=== PATIENT | female | born 1945 | race Two or more races ===

== ENCOUNTER 2023-11-28 18:04 | Inpatient (IN) | payer OTHER ==
[2023-11-28] MEDS ORDERED: DEXTROSE 50%-WATER 25 GM/50 ML DISP.SYRIN ONE (19:30)
[2023-11-28] MEDS: DEXTROSE 50%-WATER - 25 GM/50 ML VIAL IVPUSH ONE ×2 (19:32)
[2023-11-28 21:42] LABS: HEMATOCRIT 37.1 % (32.4-45.2); MCH 29.2 pg (25.7-33.7); MCHC 32.3 g/dl (32.0-36.0); MEAN CELL VOLUME 90.3 fl (80-96); RBC 4.11 M/mm3 (3.60-5.2); WHITE BLOOD COUNT 8.4 K/mm3 (4.0-10.0)
[2023-11-28 22:06] LABS: POTASSIUM 4.1 mmol/L (3.5-5.1)
[2023-11-28 22:08] LABS: CALCIUM 8.5 mg/dL (8.5-10.1)
[2023-11-28 22:09] LABS: ALBUMIN 2.1 g/dl (3.4-5.0); BLOOD UREA NITROGEN 58.6 mg/dL (7-18)
[2023-11-28 22:12] LABS: CREATININE 3.3 mg/dL (0.55-1.3)
[2023-11-28 22:13] LABS: BILIRUBIN,TOTAL 0.4 mg/dL (0.2-1); MEAN PLT VOLUME 10.8 fl (7.5-11.1); PLATELET COUNT 136 10^3/uL (134-434); TOT PROT 8.5 g/dl (6.4-8.2)
[2023-11-28 22:19] LABS: ANISOCYTOSIS 2+; MACROCYTOSIS 2+; OVALOCYTE 1+
[2023-11-29] MEDS ORDERED: DOCUSATE SODIUM 100 MG CAPSULE (FP) PO PRN (00:03)
[2023-11-29] MEDS ORDERED: CEFTRIAXONE 1 GM/50 ML BAG ONE (00:23)
[2023-11-29 00:27] LABS: VENOUS BASE EXCESS -5.9 mmol/L (-2-2); VENOUS O2 SATURATION 80.4 % (70-80); VENOUS PCO2 26.7 mmHg (38-52); VENOUS PH 7.423 (7.310-7.410)
[2023-11-29] MEDS: SODIUM CHLORIDE 0.9% 500 ML INFUS.BAG IV ONE (00:32)
[2023-11-29] MEDS: CEFTRIAXONE 1,000 MG in DEXTROSE 5%-WATER - 50 ML IVPB ONE (00:32)
[2023-11-29 00:58] LABS: EPI CELLS >36 /uL (0-25.1); HYALINE CASTS 2 /uL (0-3.1); URINE APPEARANCE CLOUDY; URINE BACTERIA >9,000 /uL (0-1359); URINE BILIRUBIN NEGATIVE (NEGATIVE); URINE COLOR YELLOW; URINE GLUCOSE (UA) TRACE (NEGATIVE); URINE KETONE TRACE (NEGATIVE); URINE LEUK ESTERASE NEGATIVE (NEGATIVE); URINE NITRITE NEGATIVE (NEGATIVE); URINE PROTEIN 1+ (NEGATIVE); URINE RBC 18 /uL (0-23.9); URINE WBC 55 /uL (0-25.8)
[2023-11-29 01:10] LABS: POTASSIUM 3.9 mmol/L (3.5-5.1)
[2023-11-29 01:11] LABS: CALCIUM 8.5 mg/dL (8.5-10.1)
[2023-11-29] MEDS ORDERED: AZITHROMYCIN IVPB 500 MG/250 ML BAG IVPB ONE (01:11)
[2023-11-29 01:12] LABS: BLOOD UREA NITROGEN 59.4 mg/dL (7-18)
[2023-11-29 01:15] LABS: CREATININE 3.1 mg/dL (0.55-1.3)
[2023-11-29] MEDS: AZITHROMYCIN IVPB 500 MG in DEXTROSE 5%-WATER - 250 ML IVPB ONE (01:19)
[2023-11-29 01:30] LABS: LACTIC ACID 2.7 mmol/L (0.4-2.0)
[2023-11-29 02:06] LABS: INR 1.33 (0.83-1.09); PROTHROMBIN TIME (PATIENT) 15.2 SEC (9.7-13.0)
[2023-11-29 02:09] LABS: ACTIVATED PTT 27.7 SECONDS (25.2-36.5)
[2023-11-29] MEDS: METOPROLOL TARTRATE 5 MG/5 ML VIAL IVPUSH ONE (04:08)
[2023-11-29] MEDS: SODIUM CHLORIDE 1,000 ML IV SCH (04:12)
[2023-11-29] MEDS: ACETAMINOPHEN 1000 MG/100 ML BAG IVPB ONE ×2 (04:25→20:31)
[2023-11-29 08:24] LABS: HEMATOCRIT 31.7 % (32.4-45.2); HEMOGLOBIN 10.6 GM/dL (10.7-15.3); MCH 29.2 pg (25.7-33.7); MCHC 33.5 g/dl (32.0-36.0); MEAN CELL VOLUME 87.2 fl (80-96); PLATELET COUNT 122 10^3/uL (134-434); RBC 3.64 M/mm3 (3.60-5.2); RDW 16.1 % (11.6-15.6); WHITE BLOOD COUNT 5.9 K/mm3 (4.0-10.0)
[2023-11-29 08:40] LABS: POTASSIUM 3.6 mmol/L (3.5-5.1)
[2023-11-29 08:41] LABS: BLOOD UREA NITROGEN 54.3 mg/dL (7-18); CALCIUM 7.9 mg/dL (8.5-10.1)
[2023-11-29 08:42] LABS: MAGNESIUM 1.2 mg/dL (1.8-2.4)
[2023-11-29 08:45] LABS: CREATININE 2.6 mg/dL (0.55-1.3); PHOSPHOROUS 3.9 mg/dL (2.5-4.9)
[2023-11-29 09:53] LABS: ANISOCYTOSIS 0; HELMET CELLS 0; HOWELL-JOLLY BODIES 0; MACROCYTOSIS 0; OVALOCYTE 0; ROULEAU 0; SICKELED CELLS 0; TARGET CELLS 0; TEAR DROP CELLS 0; TOXIC GRANULATION 0
[2023-11-29] MEDS ORDERED: AZITHROMYCIN IVPB 500 MG in DEXTROSE 5%-WATER - 250 ML IVPB SCH (10:00)
[2023-11-29 10:15] LABS: N-TERMINAL BNP 2367.3 pg/ml (5-450)
[2023-11-29] MEDS: CEFTRIAXONE 1 GM in DEXTROSE 5%-WATER - 50 ML IVPB SCH (10:35)
[2023-11-29] MEDS: METOPROLOL TARTRATE 50 MG TABLET (FP) PO SCH (10:35)
[2023-11-29] MEDS: AZITHROMYCIN IVPB 500 MG/250 ML BAG IVPB SCH (12:52)
[2023-11-29] MEDS: MAGNESIUM SULF 50% (8.12 MEQ/2 ML-1 GM VIAL) IVPB ONE (16:54)
[2023-11-29] MEDS: SODIUM CHLORIDE 0.45% 1,000 ML IV SCH (17:07)
[2023-11-29] MEDS: POTASSIUM CHLORIDE ORAL LIQUID 20 MEQ/15 ML PO ONE (17:23)
[2023-11-29 20:24] LABS: ALLENS TEST POSITIVE; ARTERIAL BLD GAS O2 SATURATION 93.3 % (95-98); ARTERIAL BLOOD GAS BASE EXCESS -3.9 mmol/L (-2-2); ARTERIAL BLOOD GAS PO2 61.5 mmHg (80-100); ARTERIAL BLOOD GAS pH 7.462 (7.350-7.450)
[2023-11-29] MEDS: HALOPERIDOL LACTATE 5 MG/ML IM ONE (21:24)
[2023-11-29] MEDS: MELATONIN 5 MG TABLETS PO PRN (23:36)
[2023-11-30] MEDS: HALOPERIDOL LACTATE 5 MG/ML IM ONE (00:55)
[2023-11-30 08:31] LABS: CHLORIDE 110 mmol/L (98-107); POTASSIUM 5.4 mmol/L (3.5-5.1); SODIUM 136 mmol/L (136-145)
[2023-11-30 08:34] LABS: CALCIUM 8.7 mg/dL (8.5-10.1)
[2023-11-30 08:35] LABS: ALBUMIN 1.9 g/dl (3.4-5.0); ANION GAP 8 mmol/L (4-13); BLOOD UREA NITROGEN 59.1 mg/dL (7-18); CO2 18 mmol/L (21-32); GLUCOSE,RANDOM 186 mg/dL (74-106); MAGNESIUM 2.1 mg/dL (1.8-2.4)
[2023-11-30 08:38] LABS: CREATININE 2.5 mg/dL (0.55-1.3); SGOT/AST 62 U/L (15-37); SGPT/ALT 43 U/L (13-61)
[2023-11-30 08:40] LABS: ALK PHOS 114 U/L (45-117); BILIRUBIN,TOTAL 0.6 mg/dL (0.2-1); TOT PROT 8.2 g/dl (6.4-8.2)
[2023-11-30] MEDS ORDERED: AZITHROMYCIN IVPB 500 MG/250 ML BAG IVPB SCH (12:00)
[2023-11-30] MEDS: METOPROLOL TARTRATE 5 MG/5 ML VIAL IVPUSH ONE (20:27)
[2023-11-30] MEDS: ACETAMINOPHEN 1000 MG/100 ML BAG IVPB ONE (21:41)
[2023-12-01 08:12] LABS: BASO % 0.3 % (0-2.0); EOS % 0.7 % (0-4.5); HEMATOCRIT 30.6 % (32.4-45.2); HEMOGLOBIN 10.4 GM/dL (10.7-15.3); LYMPH % 6.9 % (8-40); MCH 29.7 pg (25.7-33.7); MEAN CELL VOLUME 87.3 fl (80-96); MEAN PLT VOLUME 11.8 fl (7.5-11.1); MONO % 2.9 % (3.8-10.2); NEUT % 89.2 % (42.8-82.8); PLATELET COUNT 153 10^3/uL (134-434); RBC 3.51 M/mm3 (3.60-5.2); RDW 16.5 % (11.6-15.6); WHITE BLOOD COUNT 10.6 K/mm3 (4.0-10.0)
[2023-12-01 08:33] LABS: POTASSIUM 4.3 mmol/L (3.5-5.1)
[2023-12-01 08:37] LABS: ALBUMIN 1.7 g/dl (3.4-5.0); BLOOD UREA NITROGEN 73.2 mg/dL (7-18); CALCIUM 8.5 mg/dL (8.5-10.1)
[2023-12-01 08:42] LABS: BILIRUBIN,TOTAL 0.4 mg/dL (0.2-1); TOT PROT 7.3 g/dl (6.4-8.2)
[2023-12-01] MEDS: LEVALBUTEROL HCL 0.63 MG/3 ML VIAL.NEB. IH ONE (20:39)
[2023-12-02 08:18] LABS: BASO % 0.3 % (0-2.0); EOS % 1.3 % (0-4.5); HEMATOCRIT 29.9 % (32.4-45.2); LYMPH % 6.2 % (8-40); MCH 28.9 pg (25.7-33.7); MCHC 33.4 g/dl (32.0-36.0); MEAN CELL VOLUME 86.7 fl (80-96); MEAN PLT VOLUME 11.6 fl (7.5-11.1); MONO % 3.1 % (3.8-10.2); NEUT % 89.1 % (42.8-82.8); PLATELET COUNT 187 10^3/uL (134-434); RBC 3.45 M/mm3 (3.60-5.2); RDW 16.1 % (11.6-15.6); WHITE BLOOD COUNT 11.5 K/mm3 (4.0-10.0)
[2023-12-02 08:33] LABS: POTASSIUM 4.5 mmol/L (3.5-5.1)
[2023-12-02 08:35] LABS: CALCIUM 8.3 mg/dL (8.5-10.1)
[2023-12-02 08:36] LABS: ALBUMIN 1.5 g/dl (3.4-5.0); BLOOD UREA NITROGEN 74.8 mg/dL (7-18)
[2023-12-02 08:40] LABS: CREATININE 2.4 mg/dL (0.55-1.3)
[2023-12-02 08:42] LABS: BILIRUBIN,TOTAL 0.3 mg/dL (0.2-1)
[2023-12-02] MEDS: SODIUM CHLORIDE 0.45% 1,000 ML IV SCH (13:23)
[2023-12-03 07:47] LABS: CALCIUM 8.3 mg/dL (8.5-10.1)
[2023-12-03 07:48] LABS: BLOOD UREA NITROGEN 62.3 mg/dL (7-18)
[2023-12-03 07:49] LABS: ALBUMIN 1.5 g/dl (3.4-5.0)
[2023-12-03 07:51] LABS: CREATININE 1.9 mg/dL (0.55-1.3)
[2023-12-03 07:53] LABS: BILIRUBIN,TOTAL 0.7 mg/dL (0.2-1)
[2023-12-03 08:08] LABS: BASO % 0.2 % (0-2.0); EOS % 1.4 % (0-4.5); HEMATOCRIT 30.3 % (32.4-45.2); HEMOGLOBIN 10.2 GM/dL (10.7-15.3); LYMPH % 5.8 % (8-40); MCHC 33.6 g/dl (32.0-36.0); MEAN CELL VOLUME 86.2 fl (80-96); MEAN PLT VOLUME 11.5 fl (7.5-11.1); NEUT % 87.6 % (42.8-82.8); PLATELET COUNT 231 10^3/uL (134-434); RBC 3.51 M/mm3 (3.60-5.2); RDW 15.8 % (11.6-15.6); WHITE BLOOD COUNT 11.1 K/mm3 (4.0-10.0)
[2023-12-04] MEDS: methylPREDNISolone NA SUCC 40 MG/1 ML VIAL IVPUSH SCH (12:21)
[2023-12-05] MEDS ORDERED: MELATONIN 5 MG TABLETS PO PRN (05:38)
[2023-12-05 08:36] LABS: BASO % 0.1 % (0-2.0); HEMATOCRIT 30.8 % (32.4-45.2); HEMOGLOBIN 10.4 GM/dL (10.7-15.3); LYMPH % 8.7 % (8-40); MCH 28.9 pg (25.7-33.7); MCHC 33.8 g/dl (32.0-36.0); MEAN CELL VOLUME 85.7 fl (80-96); MEAN PLT VOLUME 10.4 fl (7.5-11.1); MONO % 4.5 % (3.8-10.2); NEUT % 86.7 % (42.8-82.8); PLATELET COUNT 347 10^3/uL (134-434); RDW 16.1 % (11.6-15.6); WHITE BLOOD COUNT 11.6 K/mm3 (4.0-10.0)
[2023-12-05 08:51] LABS: ALBUMIN 1.6 g/dl (3.4-5.0); CALCIUM 8.9 mg/dL (8.5-10.1); POTASSIUM 4.3 mmol/L (3.5-5.1)
[2023-12-05 08:53] LABS: BLOOD UREA NITROGEN 58.6 mg/dL (7-18)
[2023-12-05 08:55] LABS: CREATININE 1.8 mg/dL (0.55-1.3)
[2023-12-05 08:56] LABS: BILIRUBIN,TOTAL 0.5 mg/dL (0.2-1); TOT PROT 7.7 g/dl (6.4-8.2)
[2023-12-05] MEDS: DOCUSATE SODIUM 100 MG CAPSULE (FP) PO PRN (09:15)
[2023-12-05] MEDS: METOPROLOL TARTRATE 50 MG TABLET (FP) PO SCH (09:15)
[2023-12-05 14:39] VITALS: BMI 28.1
[2023-12-06] MEDS: INSULIN (NOVOLOG) ASPART 100 UNITS/ML 10ML VIAL SQ ONE (18:32)
[2023-12-06] MEDS: INSULIN REGULAR HUMAN 100 UNITS/ML *VIAL SQ ONE (18:37)
[2023-12-06] MEDS: INSULIN ASPART SLIDING SCALE (NOVOLOG) 1 VIAL SQ SCH (21:38)
[2023-12-07] MEDS: predniSONE 20 MG TABLET (UD) PO SCH (09:31)
[2023-12-07 10:18] LABS: BASO % 0.2 % (0-2.0); EOS % 0.4 % (0-4.5); HEMATOCRIT 34.6 % (32.4-45.2); HEMOGLOBIN 11.8 GM/dL (10.7-15.3); LYMPH % 17.4 % (8-40); MCH 29.5 pg (25.7-33.7); MCHC 34.1 g/dl (32.0-36.0); MEAN CELL VOLUME 86.6 fl (80-96); PLATELET COUNT 370 10^3/uL (134-434); RBC 3.99 M/mm3 (3.60-5.2); RDW 16.4 % (11.6-15.6); WHITE BLOOD COUNT 8.5 K/mm3 (4.0-10.0)
[2023-12-07 10:41] LABS: POTASSIUM 4.6 mmol/L (3.5-5.1)
[2023-12-07 10:43] LABS: ALBUMIN 1.8 g/dl (3.4-5.0); CALCIUM 8.6 mg/dL (8.5-10.1)
[2023-12-07 10:44] LABS: BLOOD UREA NITROGEN 58.3 mg/dL (7-18)
[2023-12-07 10:46] LABS: CREATININE 1.7 mg/dL (0.55-1.3)
[2023-12-07 10:48] LABS: BILIRUBIN,TOTAL 0.5 mg/dL (0.2-1); TOT PROT 7.9 g/dl (6.4-8.2)
[2023-12-08 04:33] VITALS: RESP 18
[2023-12-08 14:44] VITALS: BP 109/70; PULSE 81; TEMP 97.3
== END 2023-12-08 20:28 | DRG 193 ==
LOC: JER 18:04 → UNDOADMIN 23:37 → JERBED 23:37 → J4W 11-29 06:33 → J6S 12-05 00:06
PROVIDERS: ADMIT Internal Medicine; ATTEND Family Medicine
DX: J13 Pneumonia due to Streptococcus pneumoniae (principal); G93.41 Metabolic encephalopathy; N13.6 Pyonephrosis; N17.9 Acute kidney failure, unspecified; N18.9 Chronic kidney disease, unspecified; E11.9 Type 2 diabetes mellitus without complications; D64.9 Anemia, unspecified; E78.5 Hyperlipidemia, unspecified; F17.210 Nicotine dependence, cigarettes, uncomplicated
CPT/HCPCS: 0241U-QW; 36415; 36600; 70450-TC; 71045-TC-FY; 71250-TC; 74176-TC; 76775-TC; 80048; 80053; 81003; 82550; 82553; 82728; 82803; 82962; 83540; 83550; 83605; 83735; 83880; 84100; 84484; 85025; 85610; 85730; 86850; 86900; 86901; 87040; 87086; 87186; 87899; 93306-TC; 97116-GP; 97162-GP; 99285-25; J0131

== ENCOUNTER 2024-10-23 10:37 | Inpatient (IN) | payer OTHER ==
[2024-10-23] MEDS: LACTATED RINGERS SOLUTION 1000 ML INFUS.BAG IV ONE ×2 (12:34→19:30)
[2024-10-23 12:39] LABS: VENOUS O2 SATURATION 81.8 % (70-80); VENOUS PCO2 41.2 mmHg (38-52); VENOUS PH 7.337 (7.310-7.410)
[2024-10-23 12:42] LABS: BASOPHILS # 0.02 x10^3/uL (0.01-0.08)
[2024-10-23 12:47] LABS: ABSOLUTE IMMATURE GRANULOCYTES 0.02 x10^3/uL (0.0-0.031); EOSINOPHIL % 0.4 % (0.7-5.8); EOSINOPHILS # 0.03 x10^3/uL (0.04-0.36); HEMATOCRIT 39.1 % (34.1-44.9); HEMOGLOBIN 12.6 g/dL (11.2-15.7); MCHC 32.2 g/dl (32.2-35.5); MEAN CELL VOLUME 83.7 fl (79.4-94.8); MONOCYTE # 0.33 x10^3/uL (0.24-0.86); MONOCYTE % 4.9 % (4.7-12.5); PLATELET COUNT 113 x10^3/uL (182-369); RDW 16.5 % (12.5-17.0)
[2024-10-23 12:48] LABS: PH,URINE 5.5 (5.0-8.0); URINE APPEARANCE CLOUDY; URINE BILIRUBIN NEGATIVE (NEGATIVE); URINE COLOR YELLOW; URINE GLUCOSE (UA) 3+ (NEGATIVE); URINE KETONE NEGATIVE (NEGATIVE); URINE LEUK ESTERASE 1+ (NEGATIVE); URINE NITRITE POSITIVE (NEGATIVE); URINE PROTEIN TRACE (NEGATIVE); URINE UROBILINOGEN 0.2 mg/dL (0.2-1.0)
[2024-10-23 12:52] LABS: EPI CELLS 27.5 /uL (0-25.1); HYALINE CASTS 0.87 /uL (0-3.1); URINE RBC 34.1 /uL (0-23.9); URINE WBC 597.9 /uL (0-25.8)
[2024-10-23 12:53] LABS: URINE BACTERIA 19002.2 /uL (0-1359)
[2024-10-23 13:04] LABS: CHLORIDE 99 mmol/L (98-107); POTASSIUM 4.6 mmol/L (3.5-5.1); SODIUM 128 mmol/L (136-145)
[2024-10-23] MEDS ORDERED: CEFTRIAXONE 1 G/50 ML PREMIX 50 ML IVPB ONE (13:05)
[2024-10-23 13:07] LABS: ALBUMIN 2.8 g/dl (3.4-5.0); ANION GAP 10 mmol/L (4-13); BLOOD UREA NITROGEN 38.7 mg/dL (7-18); CO2 19 mmol/L (21-32)
[2024-10-23] MEDS ORDERED: cefTRIAXone SODIUM 1 GM VIAL ONE (13:07)
[2024-10-23 13:08] LABS: MAGNESIUM 1.6 mg/dL (1.8-2.4)
[2024-10-23 13:09] LABS: SGOT/AST 29 U/L (15-37); SGPT/ALT 16 U/L (13-61)
[2024-10-23 13:10] LABS: CREATININE 3.3 mg/dL (0.55-1.3)
[2024-10-23 13:12] LABS: ALK PHOS 67 U/L (45-117); BILIRUBIN,TOTAL 0.4 mg/dL (0.2-1); GLUCOSE,RANDOM 459 mg/dL (74-106); TOT PROT 10.7 g/dl (6.4-8.2)
[2024-10-23] MEDS ORDERED: MELATONIN 5 MG TABLETS PO PRN (14:14)
[2024-10-23] MEDS ORDERED: DOCUSATE SODIUM 100 MG CAPSULE (FP) PO PRN (14:14)
[2024-10-23] MEDS: INSULIN (NOVOLOG) ASPART 100 UNITS/ML 10ML VIAL SQ SCH (17:47)
[2024-10-23 18:05] VITALS: BMI 28.2
[2024-10-23] MEDS: SODIUM CHLORIDE 1,000 ML IV SCH (20:30)
[2024-10-23] MEDS: INSULIN GLARGINE (LANTUS) 100 UNITS/ML UNITS SQ SCH (21:55)
[2024-10-23] MEDS: HEPARIN NA (PORCINE) 5,000 UNITS/ML 1ML VIAL SQ SCH (21:57)
[2024-10-23] MEDS: METOPROLOL TARTRATE 50 MG TABLET (FP) PO SCH (21:57)
[2024-10-24 09:09] LABS: BASOPHILS # 0.01 x10^3/uL (0.01-0.08); EOSINOPHILS # 0.07 x10^3/uL (0.04-0.36); HEMOGLOBIN 12.5 g/dL (11.2-15.7)
[2024-10-24 09:11] LABS: ABSOLUTE IMMATURE GRANULOCYTES 0.02 x10^3/uL (0.0-0.031); EOSINOPHIL % 1.6 % (0.7-5.8); HEMATOCRIT 38.7 % (34.1-44.9); MCHC 32.3 g/dl (32.2-35.5); MEAN CELL VOLUME 83.9 fl (79.4-94.8); MONOCYTE # 0.22 x10^3/uL (0.24-0.86); PLATELET COUNT 98 x10^3/uL (182-369); RDW 16.5 % (12.5-17.0)
[2024-10-24 09:29] LABS: POTASSIUM 3.7 mmol/L (3.5-5.1)
[2024-10-24 09:30] LABS: CALCIUM 8.7 mg/dL (8.5-10.1)
[2024-10-24 09:32] LABS: ALBUMIN 2.6 g/dl (3.4-5.0); BLOOD UREA NITROGEN 30.5 mg/dL (7-18)
[2024-10-24 09:35] LABS: BILIRUBIN,TOTAL 0.3 mg/dL (0.2-1); CREATININE 2.3 mg/dL (0.55-1.3); PHOSPHOROUS 3.8 mg/dL (2.5-4.9); TOT PROT 9.7 g/dl (6.4-8.2)
[2024-10-24] MEDS: CEFTRIAXONE 1 G/50 ML PREMIX 50 ML IVPB SCH (09:47)
[2024-10-24] MEDS: INSULIN GLARGINE (LANTUS) 100 UNITS/ML UNITS SQ SCH (09:48)
[2024-10-25] MEDS: INSULIN GLARGINE (LANTUS) 100 UNITS/ML UNITS SQ SCH (07:34)
[2024-10-25 08:58] LABS: ABSOLUTE IMMATURE GRANULOCYTES 0.02 x10^3/uL (0.0-0.031); BASOPHILS # 0.01 x10^3/uL (0.01-0.08)
[2024-10-25 09:01] LABS: EOSINOPHIL % 2.5 % (0.7-5.8); EOSINOPHILS # 0.12 x10^3/uL (0.04-0.36); HEMATOCRIT 36.5 % (34.1-44.9); HEMOGLOBIN 11.9 g/dL (11.2-15.7); MCHC 32.6 g/dl (32.2-35.5); MEAN CELL VOLUME 84.5 fl (79.4-94.8); MONOCYTE # 0.27 x10^3/uL (0.24-0.86); MONOCYTE % 5.6 % (4.7-12.5); PLATELET COUNT 98 x10^3/uL (182-369); RDW 16.6 % (12.5-17.0)
[2024-10-25 09:20] LABS: POTASSIUM 3.9 mmol/L (3.5-5.1)
[2024-10-25 09:23] LABS: ALBUMIN 2.3 g/dl (3.4-5.0); BLOOD UREA NITROGEN 21.6 mg/dL (7-18); CALCIUM 8.8 mg/dL (8.5-10.1)
[2024-10-25 09:28] LABS: BILIRUBIN,TOTAL 0.4 mg/dL (0.2-1); TOT PROT 8.7 g/dl (6.4-8.2)
[2024-10-25] MEDS ORDERED: INSULIN ASPART SLIDING SCALE (NOVOLOG) 1 VIAL SQ ONE (12:03)
[2024-10-25 20:02] VITALS: RESP 18
[2024-10-26] MEDS: CEFTRIAXONE 1 GM in DEXTROSE 5%-WATER - 50 ML IVPB SCH (09:36)
[2024-10-26 11:43] VITALS: BP 132/63; PULSE 71; TEMP 98.1
== END 2024-10-26 12:32 | disposition home or self-care (01) | DRG 638 ==
LOC: JER 10:37 → JERBED 14:15 → OBSVTOIN 14:17 → J7W 17:27
PROVIDERS: ADMIT Family Medicine; ATTEND Family Medicine
DX: E11.65 Type 2 diabetes mellitus with hyperglycemia (principal); N13.30 Unspecified hydronephrosis; N17.9 Acute kidney failure, unspecified; N39.0 Urinary tract infection, site not specified; I10 Essential (primary) hypertension; E78.5 Hyperlipidemia, unspecified; D69.6 Thrombocytopenia, unspecified; E11.40 Type 2 diabetes mellitus with diabetic neuropathy, unspecified
CPT/HCPCS: 0241U-QW; 36415; 71045-TC-FY; 76775-TC; 80053; 81003; 82010; 82803; 82962; 83036; 83735; 84100; 84443; 85025; 87086; 93005; 93010; 99285-25; G0378

== ENCOUNTER 2025-01-16 11:13 | Emergency (ER) | payer OTHER ==
[2025-01-16 11:21] VITALS: RESP 18; TEMP 98.5; BMI 28.3
[2025-01-16 14:01] LABS: ABSOLUTE IMMATURE GRANULOCYTES 0.07 x10^3/uL (0.0-0.031); BASOPHILS # 0.02 x10^3/uL (0.01-0.08); EOSINOPHIL % 0.2 % (0.7-5.8); EOSINOPHILS # 0.01 x10^3/uL (0.04-0.36); IMMATURE PLATELET FRACTION # 4.40 x10^3/uL; MCHC 31.7 g/dl (32.2-35.5); MEAN CELL VOLUME 89.9 fl (79.4-94.8); MONOCYTE # 0.23 x10^3/uL (0.24-0.86); MONOCYTE % 4.5 % (4.7-12.5); RDW 20.6 % (12.5-17.0)
[2025-01-16 14:14] LABS: GLUCOSE,RANDOM 147.0 mg/dL (74-106); TOT PROT 12.4 g/dl (6.4-8.2)
[2025-01-16 14:15] LABS: CO2 19.0 mmol/L (21-32)
[2025-01-16 14:17] LABS: ALK PHOS 35.0 U/L (40-150)
[2025-01-16 14:19] LABS: SGOT/AST 31.0 U/L (5-34); SGPT/ALT 19.0 U/L (0-55)
[2025-01-16 14:20] LABS: CREATININE 2.89 mg/dL (0.55-1.3)
[2025-01-16 15:36] VITALS: BP 142/58; PULSE 116
[2025-01-16] MEDS: SODIUM CHLORIDE 1,000 ML IV STA (15:49)
[2025-01-16] MEDS ORDERED: MAGNESIUM SULF 50% (8.12 MEQ/2 ML-1 GM VIAL) ONE (16:15)
[2025-01-16] MEDS: MAGNESIUM SULF 50% (8.12 MEQ/2 ML-1 GM VIAL) IVPB ONE (16:24)
[2025-01-16 18:03] LABS: HCV DIAGNOSTIC IN-HOUSE W/RFLX NON-REACTIVE (NONREACTIVE)
[2025-01-16 18:30] LABS: HIV INTERPRETATION NEGATIVE (NEGATIVE)
== END 2025-01-16 17:41 | disposition home or self-care (01) ==
LOC: JER 11:13
PROC: 3E033GC Introduction of Other Therapeutic Substance into Peripheral Vein, Percutaneous Approach (ICD-10-PCS; principal; 2025-01-16)
PROC: 3E0337Z Introduction of Electrolytic and Water Balance Substance into Peripheral Vein, Percutaneous Approach (ICD-10-PCS; 2025-01-16)
DX: R22.0 Localized swelling, mass and lump, head (principal)
CPT/HCPCS: 36415; 70486-TC; 70490-TC; 80053; 83735; 85025; 86803; 87389; 93005; 93010; 99285-25

== ENCOUNTER 2025-03-17 10:49 | Inpatient (IN) | payer OTHER ==
[2025-03-17 11:49] LABS: MCHC 30.3 g/dl (32.2-35.5); MEAN CELL VOLUME 95.9 fl (79.4-94.8); RDW 21.9 % (12.5-17.0)
[2025-03-17] MEDS: LACTATED RINGERS SOLUTION 1000 ML INFUS.BAG IV ONE (11:51)
[2025-03-17 12:20] LABS: GLUCOSE,RANDOM 91 mg/dL (74-106)
[2025-03-17 12:21] LABS: CO2 17 mmol/L (21-32); TOT PROT 17.2 g/dl (6.4-8.2)
[2025-03-17 12:23] LABS: ALK PHOS 37 U/L (40-150)
[2025-03-17 12:26] LABS: CREATININE 3.84 mg/dL (0.55-1.3); SGOT/AST 178 U/L (5-34); SGPT/ALT 19 U/L (0-55)
[2025-03-17 13:29] LABS: GLUCOSE,RANDOM 56.0 mg/dL (74-106); TOT PROT 11.7 g/dl (6.4-8.2)
[2025-03-17 13:30] LABS: CO2 17.0 mmol/L (21-32)
[2025-03-17 13:31] LABS: ALK PHOS 35.0 U/L (40-150)
[2025-03-17 13:34] LABS: EPI CELLS 34 /uL (0-25.1); HYALINE CASTS 2 /uL (0-3.1); URINE APPEARANCE CLOUDY; URINE BACTERIA 764 /uL (0-1359); URINE BILIRUBIN NEGATIVE (NEGATIVE); URINE COLOR YELLOW; URINE GLUCOSE (UA) 1+ (NEGATIVE); URINE KETONE NEGATIVE (NEGATIVE); URINE LEUK ESTERASE NEGATIVE (NEGATIVE); URINE NITRITE NEGATIVE (NEGATIVE); URINE PROTEIN 1+ (NEGATIVE); URINE RBC 9 /uL (0-23.9); URINE UROBILINOGEN 0.2 mg/dL (0.2-1.0); URINE WBC 16 /uL (0-25.8)
[2025-03-17 13:34] LABS: CREATININE 3.8 mg/dL (0.55-1.3); SGOT/AST 22.0 U/L (5-34); SGPT/ALT 6.0 U/L (0-55)
[2025-03-17 13:36] LABS: LACTIC ACID 3.4 mmol/L (0.4-2.0)
[2025-03-17] MEDS: SODIUM CHLORIDE 0.9% 500 ML INFUS.BAG IV ONE (13:38)
[2025-03-17 13:50] LABS: YEAST NONE SEEN (NEGATIVE)
[2025-03-17] MEDS ORDERED: CEFTRIAXONE 1 GM/50 ML BAG ONE (14:06)
[2025-03-17] MEDS ORDERED: ACETAMINOPHEN 325 MG TABLET (FP) PO PRN (16:13)
[2025-03-17] MEDS: SODIUM CHLORIDE 1,000 ML IV SCH (16:50)
[2025-03-17] MEDS: HEPARIN NA (PORCINE) 5,000 UNITS/ML 1ML VIAL SQ SCH (21:22)
[2025-03-17] MEDS: MELATONIN 1 MG TABLET PO SCH (21:23)
[2025-03-17] MEDS: METOPROLOL TARTRATE 50 MG TABLET (FP) PO SCH (21:23)
[2025-03-18 08:10] LABS: IMMATURE PLATELET FRACTION # 2.60 x10^3/uL; MCHC 30.7 g/dl (32.2-35.5); MEAN CELL VOLUME 93.1 fl (79.4-94.8); RDW 22.1 % (12.5-17.0)
[2025-03-18 08:43] LABS: GLUCOSE,RANDOM 97 mg/dL (74-106)
[2025-03-18 08:44] LABS: TOT PROT 12.4 g/dl (6.4-8.2)
[2025-03-18 08:45] LABS: CO2 19 mmol/L (21-32)
[2025-03-18 08:46] LABS: ALK PHOS 34 U/L (40-150)
[2025-03-18 08:49] LABS: SGOT/AST 20 U/L (5-34); SGPT/ALT < 6 U/L (0-55)
[2025-03-18 08:50] LABS: CREATININE 3.81 mg/dL (0.55-1.3)
[2025-03-18] MEDS: PANTOPRAZOLE SODIUM 40 MG VIAL IVPUSH SCH (10:06)
[2025-03-18 11:36] VITALS: BMI 26.6
[2025-03-18 13:49] LABS: IRON SERUM 109.0 ug/dL (50-175)
[2025-03-18] MEDS: MAGNESIUM 1GM/D5W 100ML - 100 ML IVPB IVPB ONE (14:39)
[2025-03-18] MEDS: CEFTRIAXONE 1 GM in DEXTROSE 5%-WATER - 50 ML IVPB SCH (14:39)
[2025-03-18] MEDS: POLYETHYLENE GLYCOL (HEALTHYLAX) 3350 17 GM PACKET PO SCH (21:11)
[2025-03-19 08:00] LABS: MCHC 30.6 g/dl (32.2-35.5); MEAN CELL VOLUME 95.5 fl (79.4-94.8); RDW 22.0 % (12.5-17.0)
[2025-03-19 08:22] LABS: INR 1.54 (0.83-1.09); PROTHROMBIN TIME (PATIENT) 16.8 SEC (9.7-13.0)
[2025-03-19 08:34] LABS: GLUCOSE,RANDOM 88 mg/dL (74-106)
[2025-03-19 08:35] LABS: TOT PROT 11.5 g/dl (6.4-8.2)
[2025-03-19 08:36] LABS: CO2 20 mmol/L (21-32)
[2025-03-19 08:37] LABS: ALK PHOS 30 U/L (40-150)
[2025-03-19 08:40] LABS: CREATININE 3.81 mg/dL (0.55-1.3); SGOT/AST 16 U/L (5-34); SGPT/ALT < 6 U/L (0-55)
[2025-03-19] MEDS: PANTOPRAZOLE 40 MG TABLET PO SCH (09:10)
[2025-03-20 07:43] LABS: IMMATURE PLATELET FRACTION # 2.20 x10^3/uL; MCHC 29.5 g/dl (32.2-35.5); MEAN CELL VOLUME 96.2 fl (79.4-94.8); RDW 22.2 % (12.5-17.0)
[2025-03-20 08:04] LABS: GLUCOSE,RANDOM 85 mg/dL (74-106); TOT PROT 11.1 g/dl (6.4-8.2)
[2025-03-20 08:06] LABS: CO2 20 mmol/L (21-32)
[2025-03-20 08:07] LABS: ALK PHOS 33 U/L (40-150)
[2025-03-20 08:10] LABS: CREATININE 3.80 mg/dL (0.55-1.3); SGOT/AST 17 U/L (5-34); SGPT/ALT < 6 U/L (0-55)
[2025-03-21] MEDS ORDERED: SODIUM CHLORIDE NASAL SPRAY 44 ML BOTTLE NS PRN (10:15)
[2025-03-21 10:22] LABS: IMMATURE PLATELET FRACTION # 2.80 x10^3/uL; MCHC 29.9 g/dl (32.2-35.5); MEAN CELL VOLUME 97.7 fl (79.4-94.8); RDW 22.5 % (12.5-17.0)
[2025-03-21 10:51] LABS: GLUCOSE,RANDOM 125 mg/dL (74-106); TOT PROT 12.5 g/dl (6.4-8.2)
[2025-03-21 10:53] LABS: CO2 21 mmol/L (21-32)
[2025-03-21 10:54] LABS: ALK PHOS 40 U/L (40-150)
[2025-03-21 10:57] LABS: CREATININE 3.52 mg/dL (0.55-1.3); SGOT/AST 20 U/L (5-34); SGPT/ALT < 6 U/L (0-55)
[2025-03-21] MEDS: FLUTICASONE PROP 0.05% 16 GM NASAL SPRAY NS SCH (13:20)
[2025-03-22 07:11] VITALS: RESP 18
[2025-03-22 15:08] VITALS: BP 106/61; PULSE 77; TEMP 98.6
== END 2025-03-22 18:22 | disposition home or self-care (01) | DRG 149 ==
LOC: JER 10:49 → JERBED 13:43 → J4S 15:19 → OBSVTOIN 16:09 → J4S 03-19 00:36
PROVIDERS: ADMIT Family Medicine; ATTEND Family Medicine
DX: R42 Dizziness and giddiness (principal); N18.4 Chronic kidney disease, stage 4 (severe); E78.5 Hyperlipidemia, unspecified; I12.9 Hypertensive chronic kidney disease with stage 1 through stage 4 chronic kidney disease, or unspecified chronic kidney disease; E11.22 Type 2 diabetes mellitus with diabetic chronic kidney disease; E86.9 Volume depletion, unspecified; D64.9 Anemia, unspecified; D69.6 Thrombocytopenia, unspecified; E11.65 Type 2 diabetes mellitus with hyperglycemia; R82.71 Bacteriuria
CPT/HCPCS: 36415; 70450-TC; 71045-TC-FY; 76705-TC; 80053; 81003; 82010; 82607; 82728; 82746; 82962; 83036; 83540; 83550; 83605; 83735; 83880; 84484; 85025; 85027; 85610; 87040; 87086; 87637-QW; 93005; 93010; 97116-GP; 97161-GP; 99285-25; G0378